=== PATIENT | female | born 1960 | race Caucasian/White ===

== ENCOUNTER 2020-02-03 07:46 | Outpatient (CLI) | payer OTHER, SELFPAY ==
--- NOTE | 2020-02-03 08:48 | ECG_ITS ---
Measurements Intervals [place] Rate: 78 P: 38 MD: 177 QRS: -12 QRSD: 75 T: 46 QT: 391 QTc: 446 Interpretive Statements SINUS RHYTHM BORDERLINE R WAVE PROGRESSION, ANTERIOR LEADS BASELINE ARTIFACT- I, II, III, AVR, AVL, AVF BORDERLINE ECG Electronically Signed On 02-03-2020 9:05:44 CDT by Fabien Montiel D.O.
[2020-02-03 09:10] LABS: Hemoglobin 15.9 g/dL (12.0-15.0); Mean Corpuscular HGB Conc 32.4 g/dl (32-36); Mean Corpuscular Hemoglobin 31.4 pg (26-34); Mean Corpuscular Volume 96.8 fl (80-100); Mean Platelet Volume 11.7 fl (7.4-10.4); Platelet Count Result 206 k/mm3 (150-375); Red Blood Count 5.06 M/mm3 (4.2-5.4); Red Cell Distribution Width 13.9 % (11.5-14.5); White Blood Count 9.3 K/mm3 (4.5-10.0)
[2020-02-03 09:24] LABS: Albumin Level 4.7 g/dL (3.5-5.1)
[2020-02-03 09:28] LABS: Blood Urea Nitrogen 17 mg/dL (7-17); Calcium 9.6 mg/dL (8.4-10.2); Carbon Dioxide 32 mmol/L (22-30); Chloride 97 mmol/L (98-107); Estimated Glomerular Filt Rate > 60; Glucose 176 mg/dL (65-105); Potassium 3.8 mmol/L (3.4-5.0); Sodium 139 mmol/L (137-145)
[2020-02-03 09:48] LABS: Urine Cotinine POSITIVE
[2020-02-03 09:51] LABS: Hemoglobin A1C 10.2 % (<5.7)
[2020-02-03 09:53] LABS: Eosinophils Absolute Manual 0.83 K/mm3 (0.02-0.5); Eosinophils Percent Manual 9 % (0-4); Lymphocytes Absolute Manual 2.88 K/mm3 (1.1-4.5); Monocytes Absolute Manual 0.65 K/mm3 (0.1-0.90); Monocytes Percent Manual 7 % (3-9); Neutrophils Percent Manual 53 % (46-73); Platelet Estimate Adequate (Adequate); Total Cells Counted 100
[2020-02-03 09:54] LABS: Atypical Lymphocytes Present
== END 2020-02-03 07:47 | disposition home or self-care (01) ==
LOC: ANHSURGERY 07:50
PROVIDERS: Anesthesiology; PCP Family Medicine; Visit Provider Orthopaedic Surgery
DX: Z01.818 Encounter for other preprocedural examination (principal); M16.12 Unilateral primary osteoarthritis, left hip
CPT/HCPCS: 36415; 80048; 80307; 82040; 83036; 85025; 93005

== ENCOUNTER 2020-05-13 10:36 | Outpatient (CLI) | payer OTHER, SELFPAY ==
--- NOTE | ~2020-05-13 | DEXA_ITS ---
Bone Density Report Name: Lita Andres Age: 59 Sex: Female Ethnicity: White Date of : 1960 Indication: postmenopausal; height loss; Referring Provider: Estrella Ceron Study: Bone densitometry was performed. Exam Date: May 13, 2020 Accession number: [id number] Bone Density: Region BMD T-score Z-score Classification AP Spine (L1-L4) 1.130 0.8 2.1 Normal Femoral Neck (Left) 0.877 0.3 1.5 Normal Total Hip (Left) 1.004 0.5 1.4 Normal Total Hip Bilateral Avg 1.009 0.6 1.5 Normal Femoral Neck (Right) 0.770 -0.7 0.5 Normal Total Hip (Right) 1.013 0.6 1.5 Normal World Health Organization criteria for BMD impression classify patients as: Normal (T-score at or above -1.0), Osteopenia (T-score between -1.0 and -2.5), or Osteoporosis (T-score at or below -2.5). 10-year Fracture Risk: FRAX not reported because: All T-scores for Spine Total, Hip Total, Femoral Neck at or above -1.0 Previous Exams: Region Exam Age BMD T-score BMD Change BMD Change Date g/cm2 vs Baseline vs Previous AP Spine(L1-L4) 05/13/2020 59 1.130 0.8 -0.004(-0.4%) -0.004(-0.4%) 10/23/2015 55 1.134 0.8 Total Hip(Left) 05/13/2020 59 1.004 0.5 -0.029(-2.8%)* -0.029(-2.8%)* 10/23/2015 55 1.033 0.7 Total Hip(Right) 05/13/2020 59 1.013 0.6 0.028(2.9%)* 0.028(2.9%)* 10/23/2015 55 0.985 0.4 *Denotes significance at 95% confidence level, LSC for AP Spine = 0.022 g/cm2, LSC for Total Hip = 0.027 g/cm2 Clinical Information Provided by Patient: Smokes Has used the following medications: Vitamin D Patient maximum height was 70 Menopause Age: 54 No regular weight bearing exercise Drinks caffeinated beverages Onset of menses at age 14 Number of children 0 Impression: The patient has normal bone mass. The patient has risk factors, including: smoking. The BMD for the Total Hip(Left) decreased, changing by -2.8% since the last DXA exam. Discussion: BONE DENSITY IS ABOVE THE MINIMUM DESIRABLE LEVEL AT ALL SKELETAL SITES TESTED. This patient?s bone mineral density is above the minimum desirable level (T-score -1.0 or better) at all sites measured. The patient should follow a healthful lifestyle (good nutrition with adequate calcium and vitamin D, and appropriate weight-bearing exercise). Follow-Up: Consider repeating this study in 3 to 4 years to reassess this patient's status, or sooner if there is some new clinical indication. Reported by: [facility] on
== END 2020-05-13 10:37 | disposition home or self-care (01) ==
LOC: ANHIMG 10:38
PROVIDERS: PCP Family Medicine; Visit Provider Internal Medicine Endocrinology, Diabetes & Metabolism
DX: Z78.0 Asymptomatic menopausal state (principal)
CPT/HCPCS: 77080; 77081

== ENCOUNTER 2020-07-01 12:18 | Outpatient (CLI) | payer OTHER, SELFPAY ==
--- NOTE | ~2020-07-01 | MR_ITS ---
EXAMINATION: MR abdomen wo/w con INDICATION: Cystic pancreatic lesion TECHNIQUE: Coronal SSFSE ARC, WATER:coronal LAVA-FLEX, Coronal 2D FIESTA FatSat, Axial SSFSE BH ARC, Axial 3D DualEcho BH, Axial SSFSE-IR, Axial DWI b=500, Axial 2D FIESTA FatSat, pre and dynamic postco ntrast Axial LAVA ARC, postcontrast Coronal In and Opposed phase LAVA FLEX COMPARISON: 01/04/2017 CONTRAST: Multihance, 16 cc FINDINGS: There is an 11 mm cystic lesion with thin internal septation in the tail of the pancreas wi thout significant change. There is no definite communication with the main pancreatic duct. The pancr eatic duct is normal in course and caliber. No abnormal enhancement is present after contrast adminis tration. There is loss of hepatic parenchymal signal on opposed phase imaging, consistent with hepati c steatosis. A stone is present in the nondistended gallbladder. The spleen and right adrenal gland a re normal. There is a stable 1.6 cm adenoma of the left adrenal gland. Simple cysts of the kidneys me asure up to 1.9 cm on the left. There are no dilated loops of bowel. IMPRESSION: 1. Stable cystic lesion of the pancreatic tail with differential as previously described. Follow-up M RI without and with contrast in 12 months is recommended. Reviewed, dictated and finalized at location A. IMPRESSION: 1. Stable cystic lesion of the pancreatic tail with differential as previously described. Follow-up MRI without and with contrast in 12 months is recommended.
[2020-07-01 12:49] LABS: Estimated Glomerular Filt Rate > 60
== END 2020-07-01 12:19 | disposition home or self-care (01) ==
LOC: ANHIMG 12:19
PROVIDERS: PCP Family Medicine; Visit Provider Family Medicine
DX: K86.89 Other specified diseases of pancreas (principal)
CPT/HCPCS: 36415; 74183; A9577

== ENCOUNTER → 2021-02-24 10:02 | Outpatient (CLI) | payer OTHER, SELFPAY ==
[2021-02-24 23:00] LABS: SARS-CoV-2 RNA PCR Negative
== END ==
PROVIDERS: PCP Family Medicine; Visit Provider Nurse Practitioner Family
DX: Z20.822 Contact with and (suspected) exposure to COVID-19 (principal); R09.89 Other specified symptoms and signs involving the circulatory and respiratory systems
CPT/HCPCS: C9803; U0003; U0005

== ENCOUNTER 2021-06-14 15:21 | Outpatient (CLI) | payer OTHER, SELFPAY ==
[2021-06-14 16:26] LABS: HDL Direct 46 mg/dL
[2021-06-14 16:37] LABS: LDL Cholesterol Direct 52 mg/dL
[2021-06-14 17:11] LABS: Hemoglobin A1C 7.9 % (<5.7)
[2021-06-14 17:11] LABS: Microalbumin Urine Random 25.6 mg/L (0-16.7)
[2021-06-15 08:19] LABS: Creatinine Urine 358.4 mg/dL; MALB Creatinine Ratio 7.1 mg/g (0-30)
[2021-06-17 17:30] LABS: Metanephrine, Free <25 pg/mL (<=57); Normetanephrine, Free 170 pg/mL (<=148); Total, Free (MN + NMN) 170 pg/mL (<=205)
== END 2021-06-14 15:22 | disposition home or self-care (01) ==
LOC: ANHWCLAB 15:25
PROVIDERS: PCP Family Medicine; Visit Provider Internal Medicine Endocrinology, Diabetes & Metabolism
DX: E11.9 Type 2 diabetes mellitus without complications (principal); E27.8 Other specified disorders of adrenal gland
CPT/HCPCS: 36415; 82043; 82384; 83036; 83718; 83721; 83835

== ENCOUNTER 2022-12-27 15:19 | Emergency (ER) | payer OTHER, SELFPAY ==
[2022-12-27 15:33] VITALS: BP 130/80; PULSE 89; RESP 18; TEMP 36; O2SAT 98
--- NOTE | 2022-12-27 15:39 | ED.URI ---
HPI - URI/Sore Throat General Chief Complaint: Upper Respiratory Infection Stated Complaint: cough,sob Time Seen by Provider: 12/27/22 15:39 Source: patient Mode of arrival: ambulatory Limitations: no limitations History of Present Illness HPI Narrative: 62 year old female who presents to [facility] care with complaints of acute cough for the past 5-6 days, Patient reports that she has noted that she is short of breath with exertion,has rib pain from coughing, with some runny nose with sinus pressure and has had some sweats and a lot of phlegm which is gutierrez in color Patient reports that she has been using her nebulizer at home with Albuterol but doesn't have inhaler at present time. MD elicited complaint: cough and sore throat Pertinent past history: pneumonia, asthma and other (tobacco abuse) Onset (ago): day(s) (5-6) Pain scale (0-10): 3 Able to tolerate fluids by mouth: Yes Treatments prior to arrival: other (nebulizer) Related Data Home Medications Medication Instructions Recorded Confirmed albuterol sulfate 1.25 mg/3 mL 1.25 mg inhalation PRN PRN 12/27/22 12/27/22 solution for nebulization Shortness Of Breath Or Wheezing Allergies Allergy/AdvReac Type Severity Reaction Status Date / Time hydrocodone AdvReac Mild NAUSEA Verified 12/27/22 15:24 Review of Systems Review of Systems: CONSTITUTIONAL: Denies malaise, chills,positive sweats, no known fevers EYES: Denies visual changes, redness, or discharge. ENT: Reports rhinorrhea, congestion, sinus pain,no otalgia some sore throat. CARDIOVASCULAR: Denies chest pain, palpitations, or edema. RESPIRATORY: Reports cough.? Denies dyspnea. GASTROINTESTINAL: Denies abdominal pain, nausea, vomiting, diarrhea SKIN: Denies rash or itching. MUSCULOSKELETAL: Denies myalgia. NEUROLOGIC: Denies headache. All systems reviewed & are unremarkable except as noted in HPI and below PMFSH Past Medical History Medical History (Updated 12/27/22 @ 16:22 by Priyanka Davies NP) Adult BMI 25.0-25.9 kg/sq m Anxiety Carpal tunnel syndrome, bilateral released Controlled type 2 diabetes mellitus with hyperglycemia High blood pressure Liver disease Mass of pancreas Surgical History Surgical History (Updated 12/27/22 @ 16:17 by Priyanka Davies NP) H/O cataract removal with insertion of prosthetic lens bilateral History of hip replacement History of parathyroidectomy Family History Family History Father Family history of heart disease in male family member before age 55 Heart transplant recipient Mother No problems noted. 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 There is no relevant family history pertinent to the presenting complaint Exam Narrative: GENERAL: Well-appearing, well-nourished, and in no acute distress. HEAD: Normocephalic EYES: PERRLA, conjunctivae clear ENT: Nares clear, turbinates edematous and erythematous, clear discharge. Mucous membranes moist. TM pearly gutierrez with dull light reflex bilaterally; no tragal tenderness. Oropharynx erythematous without lesions. Tonsils not enlarged and without exudate, no drooling, no ho
== END 2022-12-27 16:00 | disposition home or self-care (01) ==
PROVIDERS: Emergency Provider Registered Nurse; PCP Family Medicine
DX: J40 Bronchitis, not specified as acute or chronic (principal); J06.9 Acute upper respiratory infection, unspecified; F17.200 Nicotine dependence, unspecified, uncomplicated; I10 Essential (primary) hypertension; E11.9 Type 2 diabetes mellitus without complications; Z98.42 Cataract extraction status, left eye; Z98.41 Cataract extraction status, right eye; Z96.1 Presence of intraocular lens; Z90.89 Acquired absence of other organs; F41.9 Anxiety disorder, unspecified
CPT/HCPCS: 99213; G0463

== ENCOUNTER 2023-03-02 15:42 | Outpatient (CLI) | payer OTHER, SELFPAY ==
--- NOTE | ~2023-03-02 | MM_ITS ---
EXAMINATION: MM screening dominguez BI w rosalba HISTORY: Screening TECHNIQUE: Craniocaudal and mediolateral oblique 3-D tomosynthesis images were obtained and synthetic 2-D images were generated. CAD analysis was submitted and interpreted. COMPARISON: Comparison to multiple prior studies sequentially, with oldest reviewed study dated 11/2014. BREAST PARENCHYMAL COMPOSITION: The breasts are heterogeneously dense, which may obscure small masses . FINDINGS: Stable bilateral breast asymmetries. There is no evidence of suspicious mass, calcification , or architectural distortion to suggest malignancy in either breast. There has been no suspicious in terval change. IMPRESSION: 1. No mammographic evidence of malignancy. 2. Recommend routine screening mammography in one year. BI-RADS Category 2: Benign finding(s). Reviewed, dictated and finalized at location A.
== END 2023-03-02 15:43 | disposition home or self-care (01) ==
PROVIDERS: PCP Family Medicine; Visit Provider Family Medicine
DX: Z12.31 Encounter for screening mammogram for malignant neoplasm of breast (principal)
CPT/HCPCS: 77063; 77067

== ENCOUNTER 2023-03-17 02:59 | Day surgery (SDC) | payer OTHER, SELFPAY ==
[2023-03-10 14:05] VITALS: BMI 26.6
--- NOTE | 2023-03-16 17:34 | PM.HPGS ---
History of Present Illness History of Present Illness Consent: Risks, benefits, and alternatives have been discussed and questions answered. Patient agrees to proceed with procedure. Chief complaint: neoplasm screening Narrative: Lita Andres is a 62 year old female who was referred for colon cancer screening. Her last colonoscopy was 8 years ago Review of Systems Review of Systems: All systems reviewed & are unremarkable except as noted in HPI and below PMFSH Past Medical History Medical History Adrenal nodule Adult BMI 25.0-25.9 kg/sq m Anxiety Bruxism (teeth grinding) Carpal tunnel syndrome, bilateral released Elevated liver enzymes Essential hypertension Eustachian tube dysfunction High blood pressure History of COPD History of fatty infiltration of liver Insomnia Liver disease Major depressive disorder, single episode, unspecified Mass of pancreas Positive CAROLE (antinuclear antibody) Post-menopausal RLS (restless legs syndrome) Type 2 diabetes mellitus with hyperglycemia Vitamin D deficiency Warts of foot Surgical History Surgical History H/O cataract removal with insertion of prosthetic lens bilateral History of hip replacement History of parathyroidectomy Family History Family History Father Family history of heart disease in male family member before age 55 Heart transplant recipient Mother No problems noted. Sibling Alcoholic Other Family history of alcoholism Family history of cardiovascular disease Family history of coronary artery disease Family history of liver disease Family history of malignant neoplasm Social History Social History Smoking packs per day: 1 Smoking cigarettes per day: 20.0 Years smoked: 40 Smoking pack-years: 40.00 Smoking status: Current every day smoker Tobacco type: cigarettes Second hand tobacco smoke exposure: Yes Alcohol intake: current Drinks per week: 8 Substance use: never Substance use type: does not use Lack of Transportation: No Lack of Food: Never True Current Housing: I Have Housing Concerned About Future Housing: No Difficulty Paying Gas/Electric Bills: No Difficulty Paying for Meds: No Currently Unemployed: No Education: Master's Degree or Higher Difficulty w/ Childcare or Family Care: No Living arrangements: alone Occupation/Education: retired 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[employer] Gender identity (if verbalized by the patient): Female Spiritual care concerns: No Meds Home Medications and Allergies Home Medications Medication Instructions Recorded Confirmed Type blood sugar diagnostic #100 ea 02/01/22 03/17/23 Rx lisinopril 20 1 tablet PO QPM #90 tabs 01/04/23 03/17/23 Rx mg-hydrochlorothiazide 12.5 mg tablet blood sugar diagnostic (OneTouch #200 ea 02/14/23 03/17/23 Rx Ultra Test strips) insulin degludec 200 unit/mL (3 20 unit (0.1 mL) subcut DAILY 90 02/14/23 03/17/23 Rx mL) subcutaneous pen (Tresiba days #9 mL FlexTouch U-200 insulin) lancets 33 gauge (OneTouch Delica #100 ea 02/14/23 03/17/23 Rx Lancets) pen needle, diabetic 31 gauge x #600 ea 02/14/23 03/17/23 Rx 5/16 (1st Tier Unifine Pentips Plus) citalopram 20 mg tablet 20 mg PO DAILY 03/10/23 03/17/23 History dulaglutide 3 mg/0.5 mL 3 mg subcut WEEKLY 03/10/23 03/17/23 History subcutaneous pen injector (Trulicity) glucagon 1 mg/0.2 mL subcutaneous 1 mg subcut ONCE PRN Hypoglycemia 03/10/23 03/17/23 History auto-injector (Gvoke HypoPen 2-Pack) insulin lispro 100 unit/mL 40 unit subcut TIDWM 03/10/23 03/17/23 History subcutaneous pen (Humalog KwikPen (U-100) Insulin) melatonin 10 mg sublingual tablet See R
[2023-03-17 12:32] VITALS: BP 115/75; PULSE 106; RESP 18; TEMP 36.1; O2SAT 100; BMI 27.2
[2023-03-17] MEDS: LACTATED RINGERS 1,000 ML 150 ML IV CONT (12:42)
--- NOTE | 2023-03-17 12:45 | WPDANESEPPF ---
Anes - Initial Pre Proc Eval Procedure: Operation Date: 03/17/23 13:30 Proposed Procedures p Screening Colonoscopy - Rashel Carter MD Date/Time: 03/17/23 12:45 Surgeon: Rashel Carter MD Pre Op Diagnosis: neoplasm screening Patient Data Age: 62 Gender: F Height: 1.75 m Weight: 83.6 kg Last Vital Signs Temp 97.0 F L 03/17/23 12:32 Pulse 106 H 03/17/23 12:32 Resp 18 03/17/23 12:32 BP 115/75 03/17/23 12:32 Pulse Ox 100 03/17/23 12:32 O2 Del Method Room Air 03/17/23 12:32 Allergies Allergy/AdvReac Type Severity Reaction Status Date / Time hydrocodone AdvReac Mild NAUSEA Verified 03/17/23 12:31 Home Medications Medication Instructions Recorded Confirmed Type blood sugar diagnostic #100 ea 02/01/22 03/17/23 Rx lisinopril 20 1 tablet PO QPM #90 tabs 01/04/23 03/17/23 Rx mg-hydrochlorothiazide 12.5 mg tablet blood sugar diagnostic (OneTouch #200 ea 02/14/23 03/17/23 Rx Ultra Test strips) insulin degludec 200 unit/mL (3 20 unit (0.1 mL) subcut DAILY 90 02/14/23 03/17/23 Rx mL) subcutaneous pen ( #9 mL FlexTouch U-200 insulin) lancets 33 gauge (OneTouch Delica #100 ea 02/14/23 03/17/23 Rx Lancets) pen needle, diabetic 31 gauge x #600 ea 02/14/23 03/17/23 Rx 5/16 (1st Tier Unifine Pentips Plus) citalopram 20 mg tablet 20 mg PO DAILY 03/10/23 03/17/23 History dulaglutide 3 mg/0.5 mL 3 mg subcut WEEKLY 03/10/23 03/17/23 History subcutaneous pen injector (Trulicity) glucagon 1 mg/0.2 mL subcutaneous 1 mg subcut ONCE PRN Hypoglycemia 03/10/23 03/17/23 History auto-injector (Gvoke HypoPen 2-Pack) insulin lispro 100 unit/mL 40 unit subcut TIDWM 03/10/23 03/17/23 History subcutaneous pen (Humalog KwikPen (U-100) Insulin) melatonin 10 mg sublingual tablet See Rx Instructions .Route 03/15/23 03/17/23 Rx .COMPLEX #90 tabs Patient hx anesthesia problems: none Family hx anesthesia problems: none Results Review: All pre-operative results and documents have been reviewed as part of the pre-operative evaluation. [facility] Past Medical History Medical History (Updated 02/28/23 @ 09:04 by Rhiannon Morrow [facility]) Adrenal nodule Adult BMI 25.0-25.9 kg/sq m Anxiety Bruxism (teeth grinding) Carpal tunnel syndrome, bilateral released Elevated liver enzymes Essential hypertension Eustachian tube dysfunction High blood pressure History of COPD History of fatty infiltration of liver Insomnia Liver disease Major depressive disorder, single episode, unspecified Mass of pancreas Positive CAROLE (antinuclear antibody) Post-menopausal RLS (restless legs syndrome) Type 2 diabetes mellitus with hyperglycemia Vitamin D deficiency Warts of foot Surgical History Surgical History H/O cataract removal with insertion of prosthetic lens bilateral History of hip replacement History of parathyroidectomy Family History Family History Father Family history of heart disease in male family member before age 55 Heart transplant recipient Mother No problems noted. Sibling Alcoholic Other Family history of alcoholism Family history of cardiovascular disease Family history of coronary artery disease Family history of liver disease Family history of malignant neoplasm Social History Social History Smoking packs per day: 1 Smoking cigarettes per day: 20.0 Years smoked: 40 Smoking pack-years: 40.00 Smoking status: Current every day smoker Tobacco type: cigarettes Second hand tobacco smoke exposure: Yes Alcohol intake: current Drinks per week: 8 Substance use: never Substance use type: does not use Lack of Transportation: No Lack of Food: Never True Current Housing: I Have Housing Concerned About Future Ho
[2023-03-17 12:49] LABS: Glucose Point of Care 181 mg/dl (65-105)
[2023-03-17] MEDS: SIMETHICONE ORAL SUSPENSION 20 MG/0.3 ML 30 ML BOTTLE 0.6 ML IRRIGATION (13:15)
[2023-03-17 13:25] VITALS: BP 82/57; PULSE 104; RESP 22; O2SAT 96
[2023-03-17 13:35] VITALS: BP 91/64; PULSE 96; RESP 20; O2SAT 95
[2023-03-17 13:45] VITALS: BP 104/69; PULSE 99; RESP 20; O2SAT 99
[2023-03-17 13:59] LABS: Glucose Point of Care 143 mg/dl (65-105)
== END 2023-03-17 14:01 | disposition home or self-care (01) ==
PROVIDERS: PCP Family Medicine; Visit Provider Internal Medicine Gastroenterology
PROC: 0DJD8ZZ Inspection of Lower Intestinal Tract, Via Natural or Artificial Opening Endoscopic (ICD-10-PCS; CPT 45378; principal; 2023-03-17 13:30)
DX: Z12.11 Encounter for screening for malignant neoplasm of colon (principal); K57.30 Diverticulosis of large intestine without perforation or abscess without bleeding; I10 Essential (primary) hypertension; E11.9 Type 2 diabetes mellitus without complications; F41.9 Anxiety disorder, unspecified; F32.9 Major depressive disorder, single episode, unspecified; F17.210 Nicotine dependence, cigarettes, uncomplicated; Z79.4 Long term (current) use of insulin; Z79.899 Other long term (current) drug therapy; E66.9 Obesity, unspecified
CPT/HCPCS: 45378; 82948; J2704; J7120

== ENCOUNTER 2023-03-21 16:07 | Outpatient (CLI) | payer OTHER, SELFPAY ==
[2023-03-21 17:40] LABS: Creatinine Urine 277.8 mg/dL
[2023-03-21 17:44] LABS: MALB Creatinine Ratio 13.1 mg/g (0-30); Microalbumin Urine Random 36.4 mg/L (0-16.7)
[2023-03-21 19:30] LABS: Free T4 Free Thyroxine 1.08 ng/mL (0.78-2.19); Vitamin D 25 Hydroxy 88.1 ng/mL
[2023-03-22 02:14] LABS: Alanine Aminotransferase 82 U/L (6-35); Albumin Level 4.6 g/dL (3.5-5.1); Alkaline Phosphatase 75 U/L (38-126); Anion Gap 9 mmol/L (8-16); Aspartate Amino Transferase 79 U/L (14-36); Bilirubin,Total 0.7 mg/dL (0.2-1.3); Blood Urea Nitrogen 9 mg/dL (7-17); Calcium 9.9 mg/dL (8.4-10.2); Carbon Dioxide 29 mmol/L (22-30); Chloride 102 mmol/L (98-107); Cholesterol 125 mg/dL (0-200); Estimated Glomerular Filt Rate > 60; Glucose 117 mg/dL (65-110); HDL Direct 58 mg/dL; Sodium 140 mmol/L (137-145); Triglycerides 66 mg/dL (<150)
[2023-03-22 02:25] LABS: LDL Cholesterol Direct 53 mg/dL
[2023-03-22 04:58] LABS: Thyroid Stimulating Hormone 0.753 uIU/mL (0.465-4.680)
== END 2023-03-21 16:08 | disposition home or self-care (01) ==
LOC: ANHWCLAB 16:09
PROVIDERS: PCP Family Medicine; Visit Provider Nurse Practitioner Family
DX: E11.65 Type 2 diabetes mellitus with hyperglycemia (principal); E27.8 Other specified disorders of adrenal gland
CPT/HCPCS: 36415; 80053; 80061; 82043; 82306; 82607; 84439; 84443

== ENCOUNTER 2023-07-20 13:25 | Outpatient (CLI) | payer OTHER, SELFPAY ==
--- NOTE | ~2023-07-20 | XR_ITS ---
EXAMINATION: XR chest 2V 07/20/2023 13:48 INDICATION: Acute bronchitis. Shortness of breath. PROCEDURE: 2 view chest COMPARISON: 04/20/2017 FINDINGS: The lungs are clear. The cardiomediastinal silhouette is within normal limits. There are no pleural effusions. There is no pneumothorax suspected. IMPRESSION: 1: NO ACUTE CARDIOPULMONARY DISEASE. Reviewed, dictated and finalized at location L.
== END 2023-07-20 13:26 | disposition home or self-care (01) ==
LOC: ANHIMG 13:27
PROVIDERS: PCP Family Medicine; Visit Provider Nurse Practitioner Family
DX: J20.9 Acute bronchitis, unspecified (principal)
CPT/HCPCS: 71046

== ENCOUNTER 2024-06-03 15:14 | Outpatient (CLI) | payer OTHER, SELFPAY ==
--- NOTE | ~2024-06-03 | MM_ITS ---
EXAMINATION: MM screening [facility] BI w rosalba HISTORY: Screening TECHNIQUE: Craniocaudal and mediolateral oblique 3-D tomosynthesis images were obtained and synthetic 2-D images were generated. CAD analysis was submitted and interpreted. COMPARISON: Comparison to multiple prior studies sequentially, with oldest reviewed study dated 09/28. BREAST PARENCHYMAL COMPOSITION: Dense: The breasts are heterogeneously dense, which may obscure small masses FINDINGS: There is no evidence of suspicious mass, calcification, or architectural distortion to sugg est malignancy in either breast. There has been no suspicious interval change. IMPRESSION: 1. No mammographic evidence of malignancy. 2. Recommend routine screening mammography in one year. BI-RADS Category 1: Negative Reviewed, dictated and finalized at location B.
== END 2024-06-03 15:15 | disposition home or self-care (01) ==
LOC: ANHIMG 15:16
PROVIDERS: PCP Family Medicine; Visit Provider Family Medicine
DX: Z12.31 Encounter for screening mammogram for malignant neoplasm of breast (principal)
CPT/HCPCS: 77063; 77067

== ENCOUNTER 2024-10-10 07:44 | Outpatient (CLI) | payer OTHER, SELFPAY ==
--- NOTE | ~2024-10-10 | NM_ITS ---
EXAMINATION: NM hepatobiliary wo pharm DATE: 10/10/2024 10:01 INDICATION: Right upper quadrant abdominal pain COMPARISON: None. TECHNIQUE: 4.9 mCi Tc-99m mebrofenin (Choletec) was administered intravenously. Scintigraphic images of the abdomen were obtained for one hour. At the 1 hour time point, the patient drank 8 oz Ensure, and imaging was continued for 30 minutes. Gallbladder ejection fraction was calculated by the technol ogist. FINDINGS: There is normal clearance of radiotracer from the blood pool. There is homogeneous tracer u ptake by the liver. Activity progresses to the bowel and gallbladder. The gallbladder ejection fract ion (GBEF) is 57%. Note that with this technique, normal GBEF >= 33%. IMPRESSION: 1. Normal hepatobiliary scan Reviewed, dictated and finalized at location B. A PAINTER
== END 2024-10-10 07:45 | disposition home or self-care (01) ==
PROVIDERS: PCP Family Medicine
DX: R10.11 Right upper quadrant pain (principal)
CPT/HCPCS: 78226; A9537

== ENCOUNTER 2025-08-18 14:46 | Outpatient (CLI) | payer OTHER, SELFPAY ==
--- OUTSIDE RECORDS SUMMARY | 2021-12-06 09:00 | XMS_ITS | Continuity of Care Document ---
Author Organization [facility] Address [address] [place] [address] Care Team Providers Care Clinical Data Manager Name Role Phone Rolanda Solano DO Unavailable Unavailable Allergies, Adverse Reactions, Alerts Substance Reaction Status Criticality erythromycin base Active No Informa tion celecoxib Active No Information liraglutide Active No Information Procedures Procedure Date Offic/outpt E&m Estab Advanced Directives Documented Complex e/m visit add on Offic/outpt E&m [facility] Complex e/m visit add on [...] Provider Providers Copied on Encounter Offic/outpt E&m [facility], [address] [place] [address], [address], [place] [facility] 3 month follow up (chief complaint) Vein U/S follow up (chief complaint) Localized swelling of lower legLocalized swelling of both lower legs 2 Xiomara Orantes. [address] [facility] [address], [address], . tel:[phone] Referring Provider: Moira Mcdonald, [address] [facility] [address], [address]. tel:[phone] Offic/outpt E&m [facility], [address] [place], [address], [place] [facility] Freeform HPI (chief complaint) Varicose veins of bilateral lower extremities with pain 1 Xiomara Orantes. [address] [facility], [place], [address], [place]. tel:[phone] Referring Provider: Moira Mcdonald, [address] [facility] [address], [place], [address]. tel:[phone] Family History Family Member Type Diagnosis Age At Onset No Information Payers Payer name Insurance type Covered republican ID Authoriza tion(s) BLUE CROSS AND BLUE [facility] O F [facility] [id number] Medicare 16 Cook MB [id number] Social History Type Description Quantity Date Captured [...] groin for 25 years since second child. Blade Filer offered to remove it.No leg pain or swelling.Maybe prominent veins in mom.DM,obesity. HLD, HTN. All controlled. reflux. 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 Surgeries: appy, R shoulder, rotator cuff repair, ACDF a year ago. Lower back surgery (herniated disk). Arthritis.[place] teeth removed. Bladder lift -- mesh repair, removed. No kidney stones. R breast (rib-- superficial) growth removed as a kid. No blood thinnersNo [place] or stroke. No smoking, EtOH (rare). Reason [...] groin for 25 years since second child. Blade Filer offered to remove it.No leg pain or swelling.Maybe prominent veins in mom.DM, obesity. HLD, HTN. All controlled. reflux. 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 Surgeries: appy, R shoulder, rotator cuff repair, ACDF a year ago. Lower back surgery (herniated disk). Arthritis.[place] teeth removed. Bladder lift -- mesh repair, removed. No kidney stones. R breast (rib-- superficial) growth removed as a kid. No blood thinnersNo [place] or stroke. No smoking, EtOH (rare). Freeform HPI L donohue bruise, h as had over a year, and noticed it on right side too. Had one in the right groin for 25 years since second child. Blade Filer offered to remove it.No leg pain or swelling.Maybe prominent veins in mom.DM, obesity. HLD, HTN. All controlled. reflux. 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 Surgeries: appy, R shoulder, rotator cuff repair, ACDF a year ago. Lower back surgery (herniated disk). Arthritis.[place] teeth removed. Bladder lift -- mesh repair, removed. No kidney stones. R breast (rib-- superficial) growth removed as a kid. No blood thinnersNo [place] or stroke. No smoking, EtOH (rare). . Functional Status Date Functional Assessmen t No Information Instructions Date Instruction Additional Infor mation No Information Assessments Type Assessment Date assessment Localized swelling of lower leg assessment Localized swelling of both lower legs Patient Care Teams Name Effective Dates (start - stop) Status Members No Information
--- NOTE | ~2025-08-18 | MM_ITS ---
EXAMINATION: MM screening [facility] BI w rosalba HISTORY: Screening TECHNIQUE: Craniocaudal and mediolateral oblique 3-D tomosynthesis images were obtained and synthetic 2-D images were generated. CAD analysis was submitted and interpreted. COMPARISON: 03/02/2023 BREAST PARENCHYMAL COMPOSITION: The breasts are heterogeneously dense, which may obscure small masses. FINDINGS: Focal asymmetry with questionable associated architectural distortion in the upper-outer quadrant of the right breast, middle depth. No suspicious calcifications. IMPRESSION: 1. Focal asymmetry with questionable associated architectural distortion in the upper-outer quadrant of the right breast, middle depth. The study is incomplete. A diagnostic mammogram and a diagnostic ultrasound are recommended. BI-RADS 0: Incomplete-Need additional imaging evaluation. Reviewed, dictated and finalized at location Q. IMPRESSION: 1. Focal asymmetry with questionable associated architectural distortion in the upper-outer quadrant of the right breast, middle depth. The study is incomplet e. A diagnostic mammogram and a diagnostic ultrasound are recommended. BI-RADS 0: Incomplete-Need additional imaging evaluation.
--- OUTSIDE RECORDS SUMMARY | 2025-08-18 15:04 | XMS_ITS | Clinical Summary ---
Author Organization [facility] Address [address] [place] [address] Care Team Providers Care Spring Maker Name Role Phone Katya Morales Primary Care Provider Allergies No known active allergies Medications citalopram (CeleXA) 10 mg tablet take 1 tablet by oral route every day 0 0 6 Active lisinopril-hydro CHLOROthiazide (PRINZIDE,ZESTOR ETIC) 20-12.5 mg per tablet take 1 tablet by oral route every day 0 0 6 Active clobetasol (TEMOVATE) 0.05 % cream apply by topical route 2 times every day a thin layer to the affected area(s) 30 0 6 Active Additional Information Patient not taking.Reported on 2018 HUMALOG MIX 75-25 KWIKPEN 100 unit/mL (75-25) insulin pen 8 Active metFORMIN (GLUCOPHAGE) 1,000 mg tablet UNKNOWN DOSE PT STATES TAKING 1 TAB TWICE DAILY Active BD ULTRA-FINE SHORT PEN NEEDLE 31 gauge x 5/16 needle 8 Active b complex vitamins capsule Take 1 capsule by mouth daily. Active biotin 2,500 mcg capsule Take 1 capsule by mouth daily. Active Lactobacillus acidophilus (PROBIOTIC ACIDOPHILUS ORAL) Take by mouth daily. Active ibuprofen (ADVIL,MOTRIN) 200 mg tab/cap Take 200 mg by mouth every 6 (six) hours as needed for pain. Active naproxen (ANAPROX,ALEVE) 220 mg tablet Take by mouth as needed for pain. Active Active Problems Problem Noted Date Diagnosed Date Type 2 diabetes mellitus, wi th long-term current use of insulin 09/05/2018 Nonalcoholic steatohepatitis (WATTS) 02/28/2017 Hypertension 05/26/2016 Overview (03/03/2017): Hypertension Anxiety 05/26/2016 Overview (03/03/2017): Anxiety Elevated liver enzymes level 05/26/2016 Overview (03/03/2017): Elevated liver enzymes level Tobacco use 04/12/2014 Overview (03/03/2017): Tobacco use Surgical History Surgery Date Site/Laterality Comments OTHER SURGICAL HISTORY 2000 Mild Dysplasia: LEEP Medical History Medical History Date Comments Hx Other Medical 2000 Mild Dysplasia Hyperlipidemia Type 2 diabetes mellitus COPD (chronic obstructive pulmonary disease) Family History Medical History Relation Name Comments Other Father Cardiac disease status post heart transplant; Relation Name Status Comments Father Social History Tobacco Use Types Packs/Day Years Used Date Smoking Tobacco: Every Day Smokeless Tobacco: Never Tobacco Cessation:Ready to Q uit: Not Asked; Counseling Given: Not Answered Alcohol Use Standard Drinks/Week Comments Yes 0 (1 standard drink = 0.6 oz pur e alcohol) Comments Unknown Sex and Gender Information Value Date Recorded Sex Assigned at Not on file Legal Sex Female 6:16 AM AIR CHIEF MARSHAL Gender Identity Not on file Sexual Orientation Not on file Obstetrics History Last Filed Vital Signs Vital Sign Reading Time Taken Comments Blood Pressure 145/84 09/11/2024 2:59 PM CDT Pulse 85 09/11/2024 2:59 PM CDT Temperature 36.7 C (98.1 F) 09/11/2024 2:59 PM CDT Respiratory Rate 18 2018 2:32 PM CDT Oxygen Saturation 100% 09/11/2024 2:59 PM CDT Inhaled Oxygen Concentration - - Weight 85.2 kg (187 lb 12.8 oz) 09/11/2024 2:59 PM CDT Height 175.3 cm (5' 9) 09/11/2024 2:59 PM CDT Body Mass Index 27.73 09/11/2024 2:59 PM CDT Plan of Treatment Health Maintenance Due Date Last Done Comments Albumin Creatinine Ratio, Urine 1961 Colon Cancer Screening-Colonoscopy 1961 Depression Screening 1961 Hemoglobin A1C 1961 Hepatitis C Screening 1961 eGFR 1961 Dilated Eye Exam 1961 Foot Exam 1961 Lipid Panel 1961 Regular Well Visit/Exam 18-64 1979 Zoster Vaccine (1 of 2) 2011 Breast Cancer Screening-Mammogram 11/26/2014 013 Pneumococcal vaccine <65 (2 of 2 - PCV) 09/02/2016 09/02/2015 Cervical Cancer Screening 05/25/2017 05/25/2016 Covid-19 Vaccine (5 - 2024-2 6 season) 2025 09/25/2023, 11/28/2021, 05/17/2021, Additional history exists Influenza Vaccine (#1) 2025 , 10/03/2022, 11/28/2021, Additional history exists DTaP/Tdap/Td Vaccine (2 - Td or Tdap) 09/02/2025 09/02/2015 Procedures Procedure Name Priority Date/Time Associated Diagnosis Comments GENITAL FLUID PAP SMEAR, THIN PREP AND HPV Routine 05/25/2016 7:00 PM CDT SCREENING MAMMOGRAM 2D BILATERAL Routine 11/26/2013 12:00 AM AIR CHIEF MARSHAL from Last 3 Months or Most Recently Relevant to Health Maintenance Results * Genital fluid pap smear, thin prep and HPV (05/25/2016 7:00 PM CDT) Clinical information SEE NOTE HISTORICAL RESULTS Comment:Information not prov ided LMP SEE NOTE HISTORICAL RESULTS Comment:Information not prov ided Previous Pap SEE NOTE HISTORI NICKI RESULTS Comment:Information not prov ided Previous biopsy SEE NOTE HIST ORICAL RESULTS Comment:Information not prov ided Referral specimen source SEE NOTE HISTORICAL RESULTS Comment:Cervix, Endocervix Statement of adequacy SEE NOTE HISTORICAL RESULTS Comment: Satisfactory for evaluation. Endocervical/transformation zone component present. Age and/or menstrual status not provided Referral specimen, interp SEE NOTE HISTORICAL RESULTS Comment:Negative for intraep ithelial lesion or malignancy. Variable comment SEE NOTE HIS TORICAL RESULTS Comment: This Pap test has been evaluated with computer assisted technology. Human papillomavirus RNA, High Risk E6/E7 Not Detected Not Detected HISTORICAL RESULTS Comment: This test was performed using the APTIMA HPV Assay ([employer] This assay detects E6/E7 viral messenger RNA (mRNA) from 14 high-risk HPV types (16,18,31,33,35,39,45,51,52,56,58,59,66,68). Genital 05/25/2016 7:00 PM CDT Narrative HISTORICAL RESULTS - 06/02/2016 3:00 AM CDT Test performed at [address] [id number] Director: GLEN GALVAN MD us Historical Provider LAB CYTOLOGY ORDERABLES F inal Result HISTORICAL RESULTS * Screening Mammogram 2D Bilateral (11/26/2013 12:00 AM AIR CHIEF MARSHAL) Anatomical Region Laterality Modality Breast Bilateral Mammography 11/26/2013 9:09 AM AIR CHIEF MARSHAL Narrative 12/03/2013 9:35 AM AIR CHIEF MARSHAL - MAMMOGRAPHY, SCREENING RH BILATERAL DIGITAL SCREENING MAMMOGRAM WITH CAD: 11/26/2013 CLINICAL: Routine screening. Patient has no complaints. Comparison is made to exams dated: 06/22/2012 [facility], 07/27/2010 [facility], and 05/25/2007 [facility]. The tissue of both breasts is heterogeneously dense. This may lower the sensitivity of mammography. Current study was also evaluated with a Computer Aided Detection (CAD) system. Innumerable dystrophic-appearing calcifications bilaterally are consistent with chronic fibrocystic changes. There are benign scattered calcifications both breasts. No significant masses, calcifications, or other findings are seen in either breast. There has been no significant interval change. IMPRESSION: BENIGN There is no mammographic evidence of malignancy. A 1 year screening mammogram is recommended. The patient will be contacted by letter. Jhon lomeli/jean paul:11/29/2013 10:34:32 letter sent: Normal Exam Mammogram BI-RADS: 2 Benign Radiologist: BRIAN PEDERSON, JHON Mueller Attending: PAXTON PINO M.D. Requesting: PAXTON PINO M.D. Requesting Completed Time: 11/26/2013 09:09 AM Dictated Time: N/A Transcribed Time: 12/03/2013 09:35 AM Signed by: JHON CATALAN MD on 12/03/2013 09:35 AM Report To 1 ID: Report To 1 Name: , Report To 1 FAX: Report To 2 ID: Report To 2 Name: , Report To 2 FAX: Report To 3 ID: Report To 3 Name: , Report To 3 FAX: NextGen Order #: Procedure Note Provider, MD Dung - 03/24/2017 - MAMMOGRAPHY, SCREENING RH BILATERAL DIGITAL SCREENING MAMMOGRAM WITH CAD: 11/26/2013 CLINICAL: Routine screening. Patient has no complaints. Comparison is made to exams dated: 06/22/2012 [facility], 07/27/2010 [facility], and 05/25/2007 [facility]. The tissue of both breasts is heterogeneously dense. This may lower the sensitivity of mammography. Current study was also evaluated with a Computer Aided Detection (CAD) system. Innumerable dystrophic-appearing calcifications bilaterally are consistent with chronic fibrocystic changes. There are benign scattered calcifications both breasts. No significant masses, calcifications, or other findings are seen in either breast. There has been no significant interval change. IMPRESSION: BENIGN There is no mammographic evidence of malignancy. A 1 year screening mammogram is recommended. The patient will be contacted by letter. Jhon Catalan M.D. [facility]:11/29/2013 10:34:32 letter sent: Normal Exam Mammogram BI-RADS: 2 Benign Radiologist: JHON CATALAN MD Attending: PAXTON PINO M.D. Requesting: PAXTON PINO M.D. Requesting Completed Time: 11/26/2013 09:09 AM Dictated Time: N/A Transcribed Time: 12/03/2013 09:35 AM Signed by: JHON CATALAN MD on 12/03/2013 09:35 AM Report To 1 ID: Report To 1 Name: , Report To 1 FAX: Report To 2 ID: Report To 2 Name: , Report To 2 FAX: Report To 3 ID: Report To 3 Name: , Report To 3 FAX: NextGen Order #: us Historical Provider MD [facility] Kerrie l Result from Last 3 Months or Most Recently Relevant to Health Maintenance Insurance [facility] Care Teams Spring Maker Relationship Specialty Start Date End Date Katya Morales PA PCP - General 03/24/17
--- OUTSIDE RECORDS SUMMARY | 2025-08-18 15:04 | XMS_ITS | Clinical Summary ---
Author Organization [facility] Address [address] [place] [address] Care Team Providers Care Deputy Sheriff Civil [employer] Name Role Phone Milan Bar MD Primary Care Provider [phone] Allergies No known active allergies Medications famotidine 40 MG tablet Take 1 tablet (40 mg total) by mouth daily. 30 tablet 05/23/20 20 Active ondansetron 4 MG disintegrating tablet Take 1 tablet (4 mg total) by mouth every 8 (eight) hours as needed for Nausea. 20 tablet 05/23/20 20 Active albuterol (ACCUNEB) 1.25 MG/3ML nebulizer solution Take 3 mLs (1.25 mg total) by nebulization every 4 (four) hours as needed for Wheezing or Shortness of breath. 720 mL 06/15/20 22 Active ipratropium (ATROVENT) 0.02 % nebulizer solution Take 2.5 mLs (500 mcg total) by nebulization 4 (four) times daily. 300 mL 06/15/20 22 Active predniSONE (DELTASONE) 20 MG tablet Take 1 pill 3 times a day for 3 days, then 1 pill 2 times a day for 3 days, then 1 pill daily for 3 days, then 1/2 tablet for 3 days then stop. 20 tablet 06/15/20 Active oxyCODONE-acetamin ophen (PERCOCET) 5-325 MG tabletIndications: Acute Pain < 7 Day Supply Take 1 tablet by mouth every 4 (four) hours as needed for Pain. Indications: Acute Pain < 7 Day Supply 20 tablet 03/21/20 24 Active Social History Tobacco Use Types Packs/Day Years Used Date Smoking Tobacco: Every Day Cigarettes Smokeless Tobacco: Never Alcohol Use Standard Drinks/Week Comments Yes 0 (1 standard drink = 0.6 oz pur e alcohol) Comments No Sex and Gender Information Value Date Recorded Sex Assigned at Not on file Legal Sex Female 7:56 PM CDT Gender Identity Not on file Sexual Orientation Not on file Last Filed Vital Signs Vital Sign Reading Time Taken Comments Blood Pressure 141/89 03/21/2024 6:13 PM CDT Pulse 77 03/21/2024 6:13 PM CDT Temperature 36.9 C (98.5 F) 03/21/2024 6:13 PM CDT Respiratory Rate 18 03/21/2024 6:13 PM CDT Oxygen Saturation 97% 03/21/2024 6:13 PM CDT Inhaled Oxygen Concentration - - Weight 81.6 kg (180 lb) 03/21/2024 12:28 PM CDT Height 175.3 cm (5' 9) 03/21/2024 12:28 PM CDT Body Mass Index 26.58 03/21/2024 12:28 PM CDT Plan of Treatment Health Maintenance Due Date Last Done Comments Cervical Cancer Screening Pa p Smear (Age 30 to 64) Every 3 Years 1961 Colorectal Cancer Screening Colonoscopy (10 Years) 1961 Annual Physical 1964 Hepatitis C 1979 DTaP, Tdap and Td Vaccines ( 1 - Tdap) 1980 Pneumococcal Vaccine: 50+ Ye ars (1 of 2 - PCV) 1980 Cervical Cancer Screening Pa p with HPV Testing (Age 30 to 64) Every 5 Years 1991 Cervical Cancer Screening with HPV 1991 Mammogram Screening 2001 Zoster Vaccines (1 of 2) 2011 COVID-19 Vaccine (2023-2 5 season) 2025 RSV Immunization or 60+ Years (1 - 1-dose 75+ series) 2036 Meningococcal B Vaccine Aged Out No l onger eligible based on patient's age to complete this topic Meningococcal Vaccine Aged Out No colette jayesh eligible based on patient's age to complete this topic RSV Immunizations Under 20 Months Aged Out No longer eligible based on patient's age to complete this topic Insurance [employer] Care Teams Deputy Sheriff Civil Division Relationship Specialty Start Date End Date Milan Bar MD [address] [place], [place] [id number] PCP - General FAMILY PRACTICE 05/23/20
--- OUTSIDE RECORDS SUMMARY | 2025-08-18 15:04 | XMS_ITS | Clinical Summary ---
Author Organization [facility] Address [address] [place] [address] Care Team Providers Care Stiff Neck Loader Name Role Phone Unavailable Primary Care Provider Unavailabl e Source Comments [facility],non-owned Affiliates and Associated Physician Practices is amultiple site organization consisting of ambulatory clinics and hospital sitesin [place], [place], [place] and [place]. This disclosure is being madepursuant to the Care Everywhere program and may not contain all information available regarding this patient. Last updated 18.[facility] Hearing Health Science Social History Tobacco Use Types Packs/Day Years Used Date Smoking Tobacco: Never Assessed Comments Unknown Sex and Gender Information Value Date Recorded Sex Assigned at Not on file Legal Sex Female 6:25 PM HUMAN RESOURCES MANAGER Gender Identity Not on file Sexual Orientation Not on file Plan of Treatment Health Maintenance Due Date Last Done Comments COLOGUARD (AGES 45-75) - COL ON CA SCREENING 1961 COLON MONITORING 1961 COLONOSCOPY - COLON CA SCREENING 1961 CT COLONOGRAPHY - COLON CA SCREENING 1961 Colorectal Cancer Screening 1961 FIT - COLON CA SCREENING 1961 FLEX SIG - COLON CA SCREENING 1961 LIPID TESTING 1961 MAMMOGRAM 1961 HIV SCREENING 1976 HEPATITIS C SCREENING 08/31/1979 DTAP/TDAP/TD VACCINES (1 - Tdap) 1980 PNEUMOCOCCAL VACCINE 50+ (1 of 1 - PCV) 2011 ZOSTER VACCINE (1 of 2) 2011 DEPRESSION SCREENING 11/27/2024 COVID-19 VACCINE (1 - 2023-2 5 season) 2025 INFLUENZA VACCINE (#1) 2025 Respiratory Syncytial Virus (RSV) Vaccine Pt: or over 60 yrs (1 - 1-dose 75+ series) 2036 HEPATITIS B VACCINE Aged Out No longe r eligible based on patient's age to complete this topic HIB VACCINE Aged Out No longer eligi ble based on patient's age to complete this topic HPV VACCINE Aged Out No longer eligi ble based on patient's age to complete this topic MENINGOCOCCAL (Group B) VACC INE SHARED DECISION-MAKING Aged Out No longer eligibl e based on patient's age to complete this topic MENINGOCOCCAL GROUPS A/C/Y/W VACCINE Aged Out No longer eligible b ased on patient's age to complete this topic Insurance [facility]
== END 2025-08-18 14:47 | disposition home or self-care (01) ==
LOC: ANHFOHIMG 14:47
PROVIDERS: PCP Family Medicine; Visit Provider Family Medicine
DX: Z12.31 Encounter for screening mammogram for malignant neoplasm of breast (principal); R92.8 Other abnormal and inconclusive findings on diagnostic imaging of breast
CPT/HCPCS: 77063; 77067

== ENCOUNTER 2025-10-06 13:21 | Outpatient (CLI) | payer OTHER, SELFPAY ==
--- OUTSIDE RECORDS SUMMARY | 2021-12-06 08:00 | XMS_ITS | Continuity of Care Document ---
Author Organization [facility] Address [address] [place] [id number] Care Team Providers Care Library Circulation Technician Name Role Phone Rolanda Solano DO Unavailable Unavailable Allergies, Adverse Reactions, Alerts Substance Reaction Status Criticality erythromycin base Active No Informa tion celecoxib Active No Information liraglutide Active No Information Procedures Procedure Date Offic/outpt E&m Estab Advanced Directives Documented 22 Complex e/m visit add on Offic/outpt E&m [facility] Complex e/m visit add on Advance Directives Directive Yes / No Effective Date File Name Other Directive No N/A N/A WARNING:The information contained in this section is historical and is provided for information only and does not constitute a legal document or any assurance that the information is still accurate. Please verify the information with the ashley of the legal document before using it for clinical purposes. Encounters Encounter Description Practice Location Reason(s) For Visit Diagnoses Date Provider Providers Copied on Encounter Offic/outpt E&m [facility], [address] [place] [address], [address], [place] [facility] 3 month follow up (chief complaint) Vein U/S follow up (chief complaint) Localized swelling of lower legLocalized swelling of both lower legs 2 Xiomara Orantes. [address] [facility] [address], [address], . tel:[phone] Referring Provider: Moira Mcdonald, [address] [facility] [address], [address]. tel:[phone] Offic/outpt E&m [facility], [address] [place], [address], [place] [facility] Freeform HPI (chief complaint) Varicose veins of bilateral lower extremities with pain 1 Xiomara Orantes. [address] [facility], [place], [address], [place]. tel:[phone] Referring Provider: Moira Mcdonald, [address] [facility] [address], [place], [address]. tel:[phone] Family History Family Member Type Diagnosis Age At Onset No Information Payers Payer name Insurance type Covered constitution party ID Authoriza tion(s) BLUE CROSS AND BLUE [facility] O F [facility] [id number] Medicare 16 Cook MB [id number] Social History Type Description Quantity Date Captured Comments Alcohol Use Details No Caffeine Use Details coffee 1 cup per day Tobacco Use Status Current non-smoker Smoking Status Never smoker Non-Smoking Tobacco Use Details : No Details Available : No Details Available Sex Female Vital Signs Date / Time: Height Weight BMI Pulse Rate Blood Pressure Temperature Respiratory Rate Body Surface Area Head Circumference Head Circ. Percentile Wt./[place]. Percentile BMI percentile Pulse Ox Inhaled Ox 1:49 PM 93 /min 144/80 mm[Hg] 16 /min 98 % Chief Complaint And Reason For Visit From encounter dated '12/06/2021 14:00'. 3 month follow up (chief complaint) Vein U/S follow up (chief complaint). Description: Three month followupSome swelling anterior shinsL>R, compression hasn't really helped. Here with . Tries cream that helped briefly with discoloration.Reviewed reflux studies 11/16/21L GSV reflux only distal calfR GSV mid-thigh, knee, prox calf (but in thigh 2mm and calf 1mm)Did bedside US-- over area of swelling there are no prominent veins, they are very very small and scatteredPer previous notes----L donohue bruise, has had over a year, and noticed it on right side too. Had one in the right groin for 25 years since second child. Meter Engineer offered to remove it.No leg pain or swelling.Maybe prominent veins in mom.DM,obesity. HLD, HTN. All controlled. reflux. 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 Surgeries: appy, R shoulder, rotator cuff repair, ACDF a year ago. Lower back surgery (herniated disk). Arthritis.[place] teeth removed. Bladder lift -- mesh repair, removed. No kidney stones. R breast (rib-- superficial) growth removed as a kid. No blood thinnersNo [place] or stroke. No smoking, EtOH (rare). Reason For Referral Reason For Referral No Information History Of Present Illness Encounter Date Complaint History Of Prese nt Illness 3 month follow up Vein U/S follow up Three month f ollowupSome swelling anterior shins L>R, compression hasn't really helped. Here with . Tries cream that helped briefly with discoloration.Reviewed reflux studies 11/16/21L GSV reflux only distal calfR GSV mid-thigh, knee, prox calf (but in thigh 2mm and calf 1mm)Did bedside US-- over area of swelling there are no prominent veins, they are very very small and scatteredPer previous notes----L donohue bruise, has had over a year, and noticed it on right side too. Had one in the right groin for 25 years since second child. Meter Engineer offered to remove it.No leg pain or swelling.Maybe prominent veins in mom.DM, obesity. HLD, HTN. All controlled. reflux. 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 Surgeries: appy, R shoulder, rotator cuff repair, ACDF a year ago. Lower back surgery (herniated disk). Arthritis.[place] teeth removed. Bladder lift -- mesh repair, removed. No kidney stones. R breast (rib-- superficial) growth removed as a kid. No blood thinnersNo [place] or stroke. No smoking, EtOH (rare). Freeform HPI L donohue bruise, h as had over a year, and noticed it on right side too. Had one in the right groin for 25 years since second child. Meter Engineer offered to remove it.No leg pain or swelling.Maybe prominent veins in mom.DM, obesity. HLD, HTN. All controlled. reflux. 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 Surgeries: appy, R shoulder, rotator cuff repair, ACDF a year ago. Lower back surgery (herniated disk). Arthritis.[place] teeth removed. Bladder lift -- mesh repair, removed. No kidney stones. R breast (rib-- superficial) growth removed as a kid. No blood thinnersNo [place] or stroke. No smoking, EtOH (rare). . Functional Status Date Functional Assessmen t No Information Instructions Date Instruction Additional Infor mation No Information Assessments Type Assessment Date assessment Localized swelling of lower leg assessment Localized swelling of both lower legs Patient Care Teams Name Effective Dates (start - stop) Status Members No Information
--- NOTE | ~2025-10-06 | MMUS_ITS ---
EXAMINATION: MM diagnostic dominguez RT w rosalba, US breast RT limited HISTORY: Follow-up right breast asymmetry TECHNIQUE: Additional 3-D tomosynthesis images of the right breast were performed and synthetic 2-D images were generated. CAD analysis was submitted and interpreted. High resolution Limited right breast ultrasound was performed. COMPARISON: Comparison to multiple prior studies sequentially, with oldest reviewed study dated 10/23/2015. BREAST PARENCHYMAL COMPOSITION: Dense: The breasts are extremely dense, which lowers the sensitivity of mammography. FINDINGS: MAMMOGRAPHIC FINDINGS: There are no suspicious masses, calcifications or architectural distortion in the right breast to suggest malignancy. ULTRASOUND: Limited right breast ultrasound: At 9:00, 4 cm from the nipple there is an oval hypoechoic circumscribed mass with parallel orientation, no posterior features and no internal vascularity measuring 8 x 5 x 3 mm, likely benign. IMPRESSION: 1. Probable benign right breast mass at 9:00, 4 cm from the nipple measuring 8 mm. 2. Recommend 6 month follow-up Limited right breast ultrasound. BI-RADS category 3, probably benign findings. Reviewed, dictated and finalized at location B. TECHNICIAN IMPRESSION: 1. Probable benign right breast mass at 9:00, 4 cm from the nipple measuring 8 mm. 2. Recommend 6 month follow-up Limited right breast ultrasound. BI-RADS category 3, probably benign findings.
--- OUTSIDE RECORDS SUMMARY | 2025-10-06 13:35 | XMS_ITS | Encounter Summary ---
Author Organization [facility] Address [address] [place] [address] Care Team Providers Care Maintainer [employer] Name Role Phone Unavailable Primary Care Provider Unavailabl e Encounter Details Date Type Department Care Team (Late st Contact Info) Description 09/24/2025 Lab Requisition [facility] - DermPath Lab [address] [place] [id number] Milan Bar MD [address] [place] [address] Social History Tobacco Use Types Packs/Day Years Used Date Smoking Tobacco: Never Assessed Comments Unknown Sex and Gender Information Value Date Recorded Sex Assigned at Not on file 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 Gender Identity Not on file Sexual Orientation Not on file documented as of this encounter Plan of Treatment Not on file documented as of this encounter Procedures Procedure Name Priority Date/Time Associated Diagnosis Comments DERMATOPATHOLOGY Routine 09/23/2025 12:0 0 AM CDT documented in this encounter Results * DERMATOPATHOLOGY (09/23/2025 12:00 AM CDT) Case Report Dermatopathology Report Case: [id number] Authorizing Provider: Milan Bar MD Collected: 09/23/2025 12:00 AM Ordering Location: [facility] - Received: 09/24/2025 01:06 PM DermPath Lab Pathologist: Melinda Becerra MD Specimens: A) - Skin, left thigh B) - Skin, right lateral calf 3:10 PM CDT DERMATOPATHOLOGY LABORATORY Final Diagnosis Specimen A. SKIN, left thigh: SEBORRHEIC KERATOSIS, MACULAR (L82.1) APPROXIMATES MARGIN Specimen B. SKIN, right lateral calf: BENIGN VERRUCOUS KERATOSIS (L82.1) SUPERIMPOSED CHANGES OF PRURIGO NODULARIS (L28.1) PRESENT AT MARGIN 3:10 PM CDT DERMATOPATHOLOGY LABORATORY at 1510 CDT Clinical History A-B: Changing Lesion Please check margins 3:10 PM CDT DERMATOPATHOLOGY LABORATORY Gross Description Specimen A: Received is one formalin filled container labeled with the patient's name and designated left thigh. The specimen consists of a non-oriented ellipse of skin measuring [id number] mm. The epidermal surface is unremarkable. The margin is inked green. The 12 o'clock and 6 o'clock tips are submitted in cassette 1. The remainder of the ellipse is serially sectioned and submitted in cassette 2. Jar 0. Specimen B: Received is one formalin filled container labeled with the patient's name and designated right lateral calf. The specimen consists of a [id number] mm piece of skin. The margin is inked green. The specimen is bisected lengthwise and submitted in 1 cassette. Jar 0. 3:10 PM CDT DERMATOPATHOLOGY LABORATORY Microscopic Description Specimen A. SKIN, left thigh: Sections show a relatively broad, flat proliferation of small keratinocytes. The surface is gently papillated, and there is increased basilar pigmentation. This lesion approximates the margin of the specimen. Specimen B. SKIN, right lateral calf: Sections show hyperkeratosis, papillomatosis, hypergranulosis, and acanthosis with fibrosis of the papillary dermis and a superficial perivascular lymphohistiocytic infiltrate. This lesion is present at the margin of the specimen. 3:10 PM CDT DERMATOPATHOLOGY LABORATORY Disclaimer An external and internal positive and negative controls are appropriate for the histochemical, immunohistochemical and immunofluorescence stain(s) in this case (if any), except where stated explicitly. The performance characteristics of the stain(s) cited in this report were developed and its performance characteristic determined by the Dermatopathology Laboratory at [facility], directed by Dr. Kathleen Babcock. These tests need not be, and therefore are not, approved by the [place] Food and Drug Administration. The tests are used for clinical purposes. Billing Codes Specimen Charges Stain Charges 01391 [id number] 1 1 3:10 PM CDT DERMATOPATHOLOGY LABORATORY Embedded Images 3:10 PM CDT DERMATOPATHOLOGY LABORATORY Pathology/Cytology TISSUE SPECIMEN FROM SKIN / Unknown 09/23/2025 09/24/2025 1:06 PM CDT Miscellaneous samples (specimen) TISSUE SPECIMEN FROM SKIN / Unknown 09/23/2025 09/24/2025 1:06 PM CDT Milanzurdo Bar MD LAB - PATHOLOGY/CYTOLOGY ORDE STEPHAN Final Result DERMATOPATHOLOGY LABORATORY [facility] - Department of Dermatology [facility] [address] [place] [address], [address] [phone] documented in this encounter Visit Diagnoses Not on filedocumented in this encounter
--- OUTSIDE RECORDS SUMMARY | 2025-10-06 13:35 | XMS_ITS | Clinical Summary ---
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 This assay detects E6/E7 viral messenger RNA (mRNA) from 14 high-risk HPV types (16,18,31,33,35,39,45,51,52,56,58,59,66,68). Genital 05/25/2016 7:00 PM CDT Narrative HISTORICAL RESULTS - 06/02/2016 3:00 AM CDT Test performed at [facility] [address] [address] Director: GLEN GALVAN MD us Historical Provider LAB CYTOLOGY ORDERABLES F inal Result HISTORICAL RESULTS * Screening Mammogram 2D Bilateral (11/26/2013 12:00 AM RADIOGRAPHER TECHNOLOGIST) Anatomical Region Laterality Modality Breast Bilateral Mammography 11/26/2013 9:09 AM RADIOGRAPHER TECHNOLOGIST Narrative 12/03/2013 9:35 AM RADIOGRAPHER TECHNOLOGIST - MAMMOGRAPHY, SCREENING RH BILATERAL DIGITAL SCREENING MAMMOGRAM WITH CAD: 11/26/2013 CLINICAL: Routine screening. Patient has no complaints. Comparison is made to exams dated: 06/22/2012 [facility], 07/27/2010 [facility], and 05/25/2007 [facility]. The tissue of [...] Comparison is made to exams dated: 06/22/2012 [facility], 07/27/2010 [facility], and 05/25/2007 [facility]. The tissue of both breasts is [...] be contacted by letter. Jhon Catalan M.D. [facility]:11/29/2013 10:34:32 letter sent: Normal Exam Mammogram BI-RADS: [...] Most Recently Relevant to Health Maintenance Insurance [facility] Care Teams Miller Apprentice Relationship Specialty Start Date End Date Katya Morales PA PCP - General 03/24/17
--- OUTSIDE RECORDS SUMMARY | 2025-10-06 13:35 | XMS_ITS | Clinical Summary ---
Author Organization [facility] Address [address] [place] [address] Care Team Providers Care Lacrosse Player Name Role Phone Unavailable Primary Care Provider Unavailabl e Source Comments [facility],non-owned Affiliates and Associated Physician Practices is amultiple site organization consisting of ambulatory clinics and hospital sitesin [place], [place], [place] and [place]. This disclosure is being madepursuant to the Care Everywhere program and may not contain all information available regarding this patient. 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 Gender Identity Not on file Sexual Orientation [...] 08/31/1979 DTAP/TDAP/TD VACCINES (1 - Tdap) 1980 PAP SMEAR 1982 PNEUMOCOCCAL VACCINE 50+ (1 of 1 - PCV) 2011 ZOSTER VACCINE (1 of 2) 2011 DEPRESSION SCREENING 11/27/2024 COVID-19 VACCINE (2023-2 5 season) 2025 INFLUENZA VACCINE (#1) 2025 [...] on patient's age to complete this topic Procedures Procedure Name Priority Date/Time Associated Diagnosis Comments DERMATOPATHOLOGY Routine 09/23/2025 12:0 0 AM CDT from Last 3 Months Results * DERMATOPATHOLOGY (09/23/2025 12:00 AM CDT) Case Report Dermatopathology Report Case: [id number] Authorizing Provider: Milan Bar MD Collected: 09/23/2025 12:00 AM Ordering Location: [facility] - Received: 09/24/2025 01:06 PM [...] of a non-oriented ellipse of skin measuring [id number] mm. The epidermal surface is unremarkable. The margin is inked green. The 12 o'clock and 6 o'clock tips are submitted in cassette 1. The remainder of the ellipse is serially sectioned and submitted in cassette 2. Jar 0. Specimen B: Received is one formalin filled container labeled with the patient's name and designated right lateral calf. The specimen consists of a 81b43e2 mm piece of skin. The margin is [...] characteristic determined by the Dermatopathology Laboratory at [facility], directed by Dr. Kathleen Babcock. These tests need not be, and therefore are not, approved by the [place] Food and Drug Administration. The tests are used for clinical purposes. Billing Codes Specimen Charges Stain Charges [id number] [id number] 1 1 3:10 PM CDT DERMATOPATHOLOGY LABORATORY Embedded Images 3:10 PM CDT DERMATOPATHOLOGY LABORATORY Pathology/Cytology TISSUE SPECIMEN FROM SKIN / Unknown 09/23/2025 09/24/2025 1:06 PM CDT Miscellaneous samples (specimen) TISSUE SPECIMEN FROM SKIN / Unknown 09/23/2025 09/24/2025 1:06 PM CDT us Milanzurdo Bar MD LAB - PATHOLOGY/CYTOLOGY NATALIE ROTHMAN Final Result DERMATOPATHOLOGY LABORATORY [facility] - Department of Dermatology [facility] [address] [facility] [address] [place] [address], [facility] [phone] from Last 3 Months Insurance [facility]
--- OUTSIDE RECORDS SUMMARY | 2025-10-06 13:35 | XMS_ITS | Clinical Summary ---
Author Organization [facility] Address [address] [place] [address] Care Team Providers Care Recreation Therapy Aides Teacher Name Role Phone Milan Bar MD Primary Care Provider [phone] Allergies No known active allergies Medications famotidine [...] 3 days then stop. 20 tablet 06/15/20 22 Active oxyCODONE-acetamin ophen (PERCOCET) 5-325 MG tabletIndications: [...] Vaccines (1 of 2) 2011 COVID-19 Vaccine (2024-2 6 season) 2025 Influenza Adult (#1) 2025 RSV Immunization or 60+ Years (1 - 1-dose 75+ series) 2036 Hepatitis A Vaccines Aged Out No long er eligible based on patient's age to complete this topic Meningococcal B Vaccine Aged Out No l onger eligible based on patient's age to complete this topic Meningococcal Vaccine Aged Out No colette jayesh eligible based on patient's age to complete this topic RSV Immunizations Under 20 Months Aged Out No longer eligible based on patient's age to complete this topic Insurance [employer] Care Teams Recreation Therapy Aides Teacher Relationship Specialty Start Date End Date Milan Bar MD [address] [address] PCP - General FAMILY PRACTICE 05/23/20
== END 2025-10-06 13:22 | disposition home or self-care (01) ==
LOC: ANHFOHIMG 13:22
PROVIDERS: PCP Family Medicine; Visit Provider Nurse Practitioner Family
DX: R92.8 Other abnormal and inconclusive findings on diagnostic imaging of breast (principal); N63.11 Unspecified lump in the right breast, upper outer quadrant
CPT/HCPCS: 76642; 77061; 77065; G0279